=== PATIENT | male | born 1960 | race Caucasian/White ===

== ENCOUNTER 2019-08-21 12:31 | Observation (INO) | payer OTHER ==
[2019-08-21] MEDS ORDERED: Meclizine HCl 25 MG TAB ONE (13:25)
[2019-08-21 13:38] LABS: #Basophils 0.1 thou/uL (0.0-0.2); #Eosinphils 0.2 thou/uL (0.0-0.7); #Lymphocytes 2.2 thou/uL (1.20-3.40); #Monocytes 1.3 thou/uL (0.11-0.59); #Neutrophils 13.5 thou/uL (1.40-6.50); %Basophils 0.7 % (0.0-1.0); %Eosinophils 0.9 % (0.0-10.0); %Lymphocytes 12.6 % (21.0-51.0); %Monocytes 7.6 % (0.0-10.0); %Neutrophils 78.2 % (42.0-75.0); Hemoglobin 15.7 g/dL (14.0-18.0); Mean Corpuscular HGB CONC 34.6 g/dL (32.0-36.0); Mean Corpuscular Hemoglobin 31.7 pg (27.0-31.0); Mean Corpuscular Volume 91.8 fL (78.0-98.0); Mean Platelet Volume 6.4 fL (7.4-10.4); Platelet Count 241 thou/uL (130-400); RBC Distribution Width 11.9 % (11.5-14.5); Red Blood Cell (RBC) Count 4.94 mill/uL (4.70-6.10); White Blood Cell (WBC) Count 17.3 thou/uL (4.8-10.8)
--- NOTE | 2019-08-21 14:06 | CT ---
CT OF THE BRAIN WITHOUT CONTRAST: INDICATION: History of being lightheaded and shortness of breath with headache. COMPARISON: None. FINDINGS: No definite acute infarct, hemorrhage, or hydrocephalus is present. Septum pellucidum and 3rd ventri patsy are midline. Mastoid air cells are clear. Paranasal sinuses are clear. The skull is intact. IMPRESSION: No acute intracranial abnormality. POS: CET
[2019-08-21 14:09] LABS: ALT (SGPT) 12 U/L (8-55); AST (SGOT) 15 U/L (5-34); Albumin 3.8 g/dL (3.5-5.0); Alkaline Phosphatase 95 U/L (40-110); Anion Gap 11 mmol/L (10-20); BUN (Urea Nitrogen) 11 mg/dL (8.4-25.7); Bilirubin, Total 0.3 mg/dL (0.2-1.2); Calc. Creatinine Clearance 0 mL/min (70-130); Calcium 8.9 mg/dL (7.8-10.44); Carbon Dioxide 24 mmol/L (22-29); Chloride 106 mmol/L (98-107); Estimated GFR-MDRD 73; Globulin 2.8 g/dL (2.4-3.5); Glucose 95 mg/dL (70-105); Protein, Total 6.6 g/dL (6.0-8.3); Sodium 137 mmol/L (136-145)
[2019-08-21] MEDS ORDERED: Aspirin Chewable 81 MG TAB ONE (15:01)
[2019-08-21] MEDS ORDERED: Ondansetron PF 4 MG/2 ML Vial IVP PRN (15:05)
[2019-08-21] MEDS ORDERED: Loperamide HCl 2 MG CAP PO PRN (15:05)
[2019-08-21] MEDS ORDERED: Acetaminophen 325 MG TAB PO PRN (15:05)
[2019-08-21] MEDS ORDERED: Bisacodyl 5 MG TAB PO PRN (15:05)
[2019-08-21] MEDS ORDERED: HYDROcodone/Acetaminophen 5/325 mg Tablet PO PRN (15:05)
[2019-08-21] MEDS ORDERED: Ondansetron ODT 4 MG TAB PO PRN (15:05)
[2019-08-21] MEDS ORDERED: HYDROcodone/Acetaminophen 7.5/325 mg Tablet PO PRN (15:05)
[2019-08-21] MEDS ORDERED: Benzonatate 100 MG CAP PO PRN (15:08)
[2019-08-21] MEDS ORDERED: diphenhydrAMINE 25 MG CAP PO PRN (15:08)
[2019-08-21] MEDS ORDERED: Labetalol HCl 100 MG/20 ML VIAL SLOW IVP PRN (15:08)
[2019-08-21] MEDS ORDERED: Melatonin 3 MG TAB PO PRN (15:08)
[2019-08-21] MEDS ORDERED: Docusate 100 MG CAP PO PRN (15:08)
[2019-08-21 15:29] LABS: Bilirubin Negative (Negative); Blood, Urine Negative (Negative); Clarity Clear (Clear); Glucose, Urine (Dipstick) Normal (Negative); Leukocyte Negative Leu/uL (Negative); Nitrite Negative (Negative); Protein, Urine (Dipstick) Negative (Neg-Trace); Urobilinogen Normal mg/dL (Less than 2)
--- NOTE | 2019-08-21 15:41 | RAD ---
PORTABLE CHEST: HISTORY: Lightheaded. Nausea and vomiting. FINDINGS: Lung polanco are clear. No infiltrate or vascular congestion. Heart size within normal range. IMPRESSION: No acute process. POS: OFF
[2019-08-21 16:58] VITALS: BMI 27.0
--- NOTE | 2019-08-21 17:12 | PDOC.HHP ---
Hospitalist HPI - History of Present Illness Dizziness History of Present Illness: 58-year-old gentleman with the past medical history of coronary artery disease status post stent placement, hypertension, and hyperlipidemia who does not take any medications or follow up with his doctor presents with acute onset of dizziness. Patient states that yesterday he was in his normal shape of good health and he was running around grocery stores and department stores for Black Friday shopping. Patient woke up this morning feeling dizzy. Patient did not fall. Patient did not lose consciousness. Patient did not have any altered mentation or slowing of his mentation. Patient did not have any palpitations. Patient I have a chest pain. Patient in a highly shortness of breath. Patient with no six symptoms of fever, chills, nausea, vomiting, or diarrhea. Patient states that his feels dizzy and he feels like his ability to walk has been diminished. Nothing makes symptoms better or worse. Patient feels like he is going to fall, though he has not actually fallen or had any trauma. I find the patient in the emergency department he is breathing well on room air in no apparent distress. Patient with a normal sinus rhythm with a ventricular rate of 50 to 60 bpm. Patient's physical exam is benign and there are no focal neurologic deficits to suggest a typical CVA pattern, with concern for posterior circulation CVA the patient is admitted to stroking it for further evaluation. Hospitalist ROS - Review of Systems All other systems reviewed; all pertinent +/- noted in HPI/Subj Hospitalist History - Past Medical History Source: patient Cardiac: reports: CAD, HTN, Hyperlipidemia. denies: AFIB, CHF, Aortic stenosis Pulmonary: reports: high cholesterol, hypertension. denies: asthma, CVA/TIA/ stroke, congestive heart failure, COPD, HIV/AIDS [employer]PER[employer]ENT: denies: CVA, Dementia, TIA Gastrointestinal: denies: GI bleed Heme/Onc: denies: Cancer Hepatobiliary: reports: Cholelithiasis - Past Surgical History Past Surgical History: reports: Cholecystectomy, Other (leg surgery as a child) - Family History Family History: reports: hypertension - Social History Smoking Status: Current every day smoker (1 pack per day for 4o years) Tobacco Type: cigarettes Alcohol: reports: Rare Drugs: reports: none Living Situation: With Family Domestic Violence: Negative Activity level: independent ambulation - Exam General Appearance: NAD, awake alert Eye: PERRL, anicteric sclera ENT: normocephalic atraumatic, no oropharyngeal lesions, moist mucosa Neck: supple, symmetric, no lymphadenopathy Heart: RRR, no murmur, no gallops, no rubs, normal peripheral pulses Respiratory: CTAB, no wheezes, no rales, no ronchi, normal chest expansion Gastrointestinal: soft, non-tender, non-distended, no palpable masses, no guarding, no rigidity Extremities: no edema Skin: no lesions, no rashes Neurological: cranial nerve grossly intact, normal sensation to touch, no weakness, no focal deficits. negative: facial droop, hemiplegia, speech deficit , vision deficit Musculoskeletal: normal tone, normal strength, no muscle wasting Psychiatric: normal affect, normal behavior, A&O x 3 Hospitalist Results - Labs Result Diagrams: 08/21/19 13:28 08/21/19 13:28 Lab results: WBC 17.3 thou/uL (4.8-10.8) H 08/21/19 13:28 Hgb 15.7 g/dL (14.0-18.0) 08/21/19 13:28 Hct 45.4 % (42.0-52.0) 08/21/19 13:28 MCV 91.8 fL (78.0-98.0) 08/21/19 13:28 Plt Count 241 thou/uL (130-400) 08/21/19 13:28 Neutrophils % 78.2 % (42.0-75.0) H 08/21/19 13:28 Sodium 137 mmol/L (136-145) 08/21/19 13:28 Potassium 4.0 mmol/L (3.5-5.1) 08/21/19 13:28 Chloride 106 mmol/L (98-107) 08/21/19 13:28 Carbon Dioxide 24 mmol/L (22-29) 08/21/19 13:28 BUN 11 mg/dL (8.4-25.7) 08/21/19 13:28 Creatinine 1.04 mg/dL (0.7-1.3) 08/21/19 13:28 Glucose 95 mg/dL (70-105) 08/21/19 13:28 Calcium 8.9 mg/dL (7.8-10.44) 08/21/19 13:28 Total Bilirubin 0.3 mg/dL (0.2-1.2) 08/21/19 13:28 AST 15 U/L (5-34) 08/21/19 13:28 ALT 12 U/L (8-55) 08/21/19 13:28 Alkaline Phosphatase 95 U/L (40-110) 08/21/19 13:28 Troponin I Less than 0.010 ng/mL (< 0.028) 08/21/19 13:28 Serum Total Protein 6.6 g/dL (6.0-8.3) 08/21/19 13:28 Albumin 3.8 g/dL (3.5-5.0) 08/21/19 13:28 Urine Ketones Negative mg/dL (Negative) 08/21/19 15:17 Urine Blood Negative (Negative) 08/21/19 15:17 Urine Nitrite Negative (Negative) 08/21/19 15:17 Ur Leukocyte Esterase Negative Omari/uL (Negative) 08/21/19 15:17 - Radiology Interpretation CT scan - head Status: image reviewed by ut Hospitalist H&P A/P - Problem (1) Posterior circulation stroke Code(s): I63.50 - CEREB INFRC DUE TO UNSP OCCLS OR STENOS OF UNSP CEREB ARTERY Status: Acute (2) HTN (hypertension) Code(s): I10 - ESSENTIAL (PRIMARY) HYPERTENSION Status: Acute (3) HLD (hyperlipidemia) Code(s): E78.5 - HYPERLIPIDEMIA, UNSPECIFIED Status: Acute (4) CAD (coronary artery disease) Code(s): I25.10 - ATHSCL HEART DISEASE OF [place] CORONARY ARTERY W/O ANG PCTRS Status: Acute (5) Tobacco abuse Code(s): Z72.0 - TOBACCO USE Status: Acute - Plan Plan: Admit to medical unit with telemetry - stroke unit MRI brain to rule out acute ischemic event including route carrier circulation CVA, which would explain dizziness ultrasound of the carotid's to rule out hemodynamically significant stenosis echocardiogram to evaluate structural anatomy of the heart and quantify ejection fraction to elicit a cause of patient's dizziness patient is noncompliant with follow up with his primary care physician and does not currently take any of his cholesterol medications are blood pressure medications. Patient with past medical history of coronary disease with stent placement roughly 10 years ago though he is not on any medications for this patient denies symptoms of chest pain or shortness of breath troponin normal chest x-ray without focal pneumonia or other acute cardiothoracic pathology patient with elevation in WBC count of 17,000, possibly stress reactive, will trend UA negative for infection no obvious source of infection at this time patient does not have any pulmonary symptoms or urinary tract infection symptoms patient is not have any nausea or vomiting or diarrhea Will hold ABX at this time and monitor for symptoms to suggest infection DVT PPX - SCDs BP control
[2019-08-21] MEDS: Famotidine 20 MG TAB PO SCH (21:26)
[2019-08-22 04:30] LABS: #Basophils 0.1 thou/uL (0.0-0.2); #Eosinphils 0.5 thou/uL (0.0-0.7); #Lymphocytes 3.1 thou/uL (1.20-3.40); #Neutrophils 5.8 thou/uL (1.40-6.50); %Basophils 0.9 % (0.0-1.0); %Eosinophils 4.5 % (0.0-10.0); %Lymphocytes 29.8 % (21.0-51.0); %Monocytes 9.2 % (0.0-10.0); %Neutrophils 55.6 % (42.0-75.0); Hemoglobin 15.2 g/dL (14.0-18.0); Mean Corpuscular HGB CONC 34.3 g/dL (32.0-36.0); Mean Corpuscular Hemoglobin 31.7 pg (27.0-31.0); Mean Corpuscular Volume 92.4 fL (78.0-98.0); Mean Platelet Volume 6.5 fL (7.4-10.4); Platelet Count 239 thou/uL (130-400); RBC Distribution Width 12.1 % (11.5-14.5); White Blood Cell (WBC) Count 10.4 thou/uL (4.8-10.8)
[2019-08-22 04:48] LABS: Anion Gap 8 mmol/L (10-20); BUN (Urea Nitrogen) 12 mg/dL (8.4-25.7); Calc. Creatinine Clearance 76 mL/min (70-130); Carbon Dioxide 29 mmol/L (22-29); Chloride 103 mmol/L (98-107); Estimated GFR-MDRD 63; Glucose 87 mg/dL (70-105); Potassium 4.3 mmol/L (3.5-5.1); Sodium 136 mmol/L (136-145)
[2019-08-22] MEDS ORDERED: Nicotine 21 MG PATCH TD SCH ×2 (07:30→18:00)
[2019-08-22 08:54] LABS: Cardiac Risk 7.6 (Less than 4.5)
[2019-08-22] MEDS ORDERED: FLU VACC QS2019-20(6MOS UP)/PF 60 MCG/0.5 ML SYRINGE IM ONE (09:00)
--- NOTE | 2019-08-22 09:49 | ULT ---
CAROTID DOPPLER: Ultrasound Doppler study is performed of the extracranial carotid arteries. Carotid Doppler with spe ctral analysis and velocity recordings obtained. INDICATION: Dizziness. FINDINGS: Both extracranial carotids demonstrate a high bifurcation. The distal ICAs were not well evaluated. Ultrasound images show no significant plaque or intimal thickening. Velocity recordings are within normal range bilaterally. Both vertebral arteries show antegrade flow. IMPRESSION: 1. No significant plaque seen with ultrasound. 2. No evidence of stenosis identified by Doppler velocity. POS: OFF
[2019-08-22] MEDS: Famotidine 20 MG TAB PO SCH ×2 (10:20→20:22)
[2019-08-22] MEDS ORDERED: Diazepam 5 MG TAB PO PRN (11:15)
--- NOTE | 2019-08-22 11:52 | PDOC.HOSPP ---
- Subjective Subjective: Seen and examined this a.m. Patient with persistent dizziness, is worse when he stands and worse with ambulation. Patient with persistent bradycardia. CVA evaluation pending. All questions answered in detail. Patient has fallen out of follow up with his nuclear pharmacist and coronary artery disease has not been assessed in over 10 years. - Objective Vital Signs & Weight: Vital Signs (12 hours) Temp Pulse Resp BP Pulse Ox 08/22/19 07:50 98.2 F 59 L 16 110/72 92 L 08/22/19 03:23 98.1 F 54 L 16 114/65 92 L Weight Weight 177 lb 9.6 oz Result Diagrams: 08/22/19 04:18 08/22/19 04:18 Radiology Reviewed by me: Yes EKG Reviewed by me: Yes Hospitalist ROS - Review of Systems All other systems reviewed; all pertinent +/- noted in HPI/Subj - Medication Medications: Active Medications Generic Name Dose Route Start Last Admin Trade Name Freq PRN Reason Stop Dose Admin Hydrocodone Bitart/Acetaminophen 1 tab 08/21/19 15:05 08/22/19 06:35 [place] 5/325 PO 1 tab Q4H PRN Administration Moderate Pain (4-6) Famotidine 20 mg 08/21/19 21:00 08/22/19 10:20 Pepcid PO 20 mg BID NISHA Administration Nicotine 21 mg 08/22/19 07:30 08/22/19 10:18 Nicoderm Patch TD 08/22/19 21:00 Not Given NOW NISHA Sodium Chloride 10 ml 08/22/19 09:00 08/22/19 10:20 Flush - Normal Saline IVF 10 ml Q12HR NISHA Administration - Exam General Appearance: NAD, awake alert Eye: PERRL ENT: normocephalic atraumatic, moist mucosa Neck: supple, symmetric, no JVD Heart: RRR, no murmur, no gallops, no rubs Respiratory: CTAB, no wheezes, no rales, no ronchi Gastrointestinal: soft, non-tender, non-distended, normal bowel sounds, no guarding, no rigidity Extremities: no edema Skin: no lesions, no rashes Neurological: cranial nerve grossly intact, normal sensation to touch, no weakness, no focal deficits Musculoskeletal: normal tone, normal strength, no muscle wasting Psychiatric: normal affect, normal behavior, A&O x 3 Hosp A/P (1) Posterior circulation stroke Code(s): I63.50 - CEREB INFRC DUE TO UNSP OCCLS OR STENOS OF UNSP CEREB ARTERY Status: Acute (2) HTN (hypertension) Code(s): I10 - ESSENTIAL (PRIMARY) HYPERTENSION Status: Acute (3) HLD (hyperlipidemia) Code(s): E78.5 - HYPERLIPIDEMIA, UNSPECIFIED Status: Acute (4) CAD (coronary artery disease) Code(s): I25.10 - ATHSCL HEART DISEASE OF [place] CORONARY ARTERY W/O ANG PCTRS Status: Acute (5) Tobacco abuse Code(s): Z72.0 - TOBACCO USE Status: Acute - Plan Plan: medical unit telemetry stroking cardiology consultation requested, recommendations appreciated patient possibly with symptomatic bradycardia as cause of dizziness MRI brain to rule out acute ischemic event including posterior circulation CVA, which would explain dizziness ultrasound of the carotid - no hemodynamically significant stenosis echocardiogram to evaluate structural anatomy of the heart and quantify ejection fraction to elicit the cause of patient's dizziness patient is noncompliant to follow up with primary care physician and cardiology , does not take medications he was prescribed in the past patient denies symptoms of chest pain or shortness of breath troponin normal chest x-ray without focal pneumonia are other acute cardiothoracic pathology WBC count has normalized without intervention, likely stress reactive urine analysis negative for infection DVT prophylaxis SCDs blood pressure control
--- NOTE | 2019-08-22 13:47 | MRI ---
MRI OF BRAIN WITH AND WITHOUT CONTRAST: INDICATION: Rule out CVA. FINDINGS: Ventricles have normal size and position. No evidence of restricted diffusion. No evidence of acute infarct, mass, or edema. A few scattered white matter hyperintensities appear nonspecific. There is no significant white matter abnormality. Intracranial internal carotid arteries and proximal cerebral arteries and basilar arteries demonstrat e flow voids. No abnormal enhancement. IMPRESSION: Unremarkable MRI of brain. POS: OFF
--- NOTE | 2019-08-22 14:34 | CON ---
DATE OF CONSULTATION: 08/22/2019 REASON FOR CONSULTATION: Dizziness. HISTORY OF PRESENT ILLNESS: Mr. Chun is a pleasant 58-year-old white gentleman, who comes to the hospital for dizziness. He was doing some black [place] shopping and woke up feeling dizzy. No falls. No nausea or vomiting or palpitations. He decided to come in as he could not do much from the from the dizziness. He was admitted for CVA evaluation and Cardiology is being consulted to see if his dizziness is cardiac related. He has been on the pvc monitor and his heart rate in the 60s while feeling dizzy. PAST MEDICAL HISTORY: 1. Coronary artery disease with stents in 2003 in [place]. He has a stent card and he had 3-0 stent to the proximal RCA. This was a Taxus stent. This was in August of 2004. 2. Hypertension. 3. Hyperlipidemia. SURGICAL HISTORY: 1. Cholecystectomy. 2. Leg surgery as a child. FAMILY HISTORY: Noncontributory. SOCIAL HISTORY: Smokes a pack a day for the last 40 years. No alcohol or drugs. OUTPATIENT MEDICATIONS: Simvastatin unknown dose, but he has been taking this for a long time. ALLERGIES: NO KNOWN DRUG ALLERGIES. REVIEW OF SYSTEMS: A 12-point review of systems was done and was all negative unless stated in the history of present illness. PHYSICAL EXAMINATION: VITAL SIGNS: Temperature 97.8, pulse 55, respiratory rate 16, satting 94% on room air, blood pressure 109/71. GENERAL: Awake, alert, oriented x3. No distress. HEENT: Normocephalic, atraumatic. NECK: Supple. LUNGS: Clear. CARDIOVASCULAR: S1 and S2. No S3 or S4. No murmurs. ABDOMEN: Soft. Positive bowel sounds. EXTREMITIES: No edema. SKIN: Warm and dry. NEUROLOGICAL: [place]-Hallpike maneuver was positive with very mild nystagmus on the right side. The more we did it, the less he felt the symptoms and the dizziness was gone. We did on the eft side. LABORATORY DATA: Laboratory work was reviewed. White count of 17, down to 10, hemoglobin of 15, hematocrit 44, platelet count 239. Chemistries were unremarkable. Troponin is undetectable. Triglycerides of 346, cholesterol total of 227, LDL of 128, HDL of 30. UA was normal. . PLAN: 1. Dizziness. Most likely vertigo. Await MRI results and complete workup with an echo. Unlikely to be a tachy or bradyarrhythmia as his heart rate is normal in the 60s, normal sinus while he is still feeling dizzy on the bed. 2. Coronary artery disease by history. He has a stent to the right. His LDL goal is less than 70. He needs to be on high dose statins at this time and an aspirin daily. 3. Hypertension: Blood pressure is borderline low. Would not give him any antihypertensive at this time. 4. Tobacco use. Counseled on tobacco cessation. PLAN: 1. Echocardiogram pending. 2. MRI review pending. Preliminary report is apparently negative, but we will wait for official review. 3. Most likely this is benign positional vertigo. I recommended he look for the Apley's maneuvers online. He learned how to do this to see if this is going to help him. He may need meclizine. We will leave this up to primary team. 4. If his MRI shows what appears to be embolic strokes, he will need a LINQ. Otherwise, if the MRI is negative, we will just wait for the echo and if this is unremarkable, he may discharge home. 5. Plan to follow up in the office in 2-3 months for followup of his coronary artery disease which is stable at this time. Thank you for letting us participate in the care of your patient. We will follow. Job ID: [id number]
[2019-08-22] MEDS ORDERED: Meclizine HCl 25 MG TAB PO PRN (19:09)
[2019-08-22] MEDS ORDERED: Zolpidem Tartrate 5 MG TAB PO SCH (21:00)
[2019-08-23 07:50] VITALS: TEMP 99.1
[2019-08-23] MEDS: Famotidine 20 MG TAB PO SCH (08:36)
[2019-08-23 11:12] VITALS: BP 110/76
--- NOTE | 2019-08-24 08:41 | DIS ---
DATE OF ADMISSION: 08/21/2019 DATE OF DISCHARGE: 08/23/2019 DISCHARGE DIAGNOSES: 1. Acute paroxysmal positional vertigo. 2. Hypertension. 3. Hyperlipidemia. 4. Coronary artery disease. 5. Tobacco abuse. HISTORY OF PRESENT ILLNESS: This patient is a 59-year-old male, who presented to the emergency department with dizziness that was positional, worse with standing and with ambulation. The patient had some bradycardia in the 60s. The patient reported that [place] and had not reestablished with a primary care provider or safety belt installer. He had an initial CT scan of the brain and chest x-ray in the emergency department, which were unremarkable. HOSPITAL COURSE: The patient was admitted to the hospital initially for concern regarding bradycardia and the possibility of a posterior circulation CVA. He was placed on telemetry, which revealed primarily heart rate remaining in the 50s. He had labs including the troponins, which were negative. He initially had a slight elevation of his white blood cell count at 17.3. He had an MRI of the brain, which was unremarkable. Carotid Dopplers which were unremarkable. He was seen in consultation by Cardiology, who felt he had a benign paroxysmal positional vertigo. He recommended outpatient followup with him. Echocardiogram ultimately revealed an ejection fraction of 55% to 60% with grade 2 diastolic dysfunction, but otherwise normal. The patient felt completely well, said his symptoms had resolved. He was up ambulating in the hallway without difficulty and his white blood cell count had normalized to 10.4. He had stable vital signs throughout other than the very mild bradycardia. PHYSICAL EXAMINATION: VITAL SIGNS: On the day of discharge, temperature is 99.1, pulse is 69, respirations 16, O2 saturation 93% on room air, and blood pressure is 110/76. GENERAL: He was awake and alert. HEART: Regular rate and rhythm. LUNGS: Clear bilaterally. ABDOMEN: Benign. EXTREMITIES: No cyanosis, clubbing, or edema. DISPOSITION: The patient is discharged to home. He is to have a heart healthy diet. ACTIVITY: As tolerated. DISCHARGE MEDICATIONS: He will be on: 1. Aspirin 81 mg daily. 2. Simvastatin 10 mg daily. FOLLOWUP: He is to follow up with his primary care provider, which he will establish with promptly. He was educated on Rajeev maneuvers and otolith repositioning exercises should his symptoms recur. We discussed the possibility of using [id number] meclizine for symptomatic control as well. All of his questions were answered. The patient is welcomed to return to the hospital at anytime should he have the need to do so. Job ID: [id number]
== END 2019-08-23 11:38 | disposition home or self-care (01) ==
LOC: ERS 12:31 → 2SE 16:52
PROVIDERS: ADMIT Internal Medicine; ATTEND Student in an Organized Health Care Education/Training Program
DX: H81.10 Benign paroxysmal vertigo, unspecified ear (principal); I11.0 Hypertensive heart disease with heart failure; I50.9 Heart failure, unspecified; E78.5 Hyperlipidemia, unspecified; I25.10 Atherosclerotic heart disease of native coronary artery without angina pectoris; I48.91 Unspecified atrial fibrillation; F17.210 Nicotine dependence, cigarettes, uncomplicated; I35.0 Nonrheumatic aortic (valve) stenosis; Z95.5 Presence of coronary angioplasty implant and graft
CPT/HCPCS: 36415; 70450; 70553; 71045; 80048; 80053; 80061; 81003; 84484; 85025; 90471; 90686; 90732; 93005; 93306; 93880; G0008; G0009; G0378; J8597

== ENCOUNTER 2024-05-28 17:47 | Inpatient (IN) | payer OTHER ==
[~2024-05-28 17:47] MED LIST: Iopamidol-370 76% 500 ML MDV (1 ML CHARGE) ONE
[2024-05-28 18:29] LABS: #Basophils 0.14 10x3/uL (0.0-0.2); %Basophils 0.9 % (0.0-1.0); %Eosinophils 1.4 % (0.0-10.0); %Lymphocytes 16.4 % (21.0-51.0); %Monocytes 7.9 % (0.0-10.0); %Neutrophils 72.7 % (42.0-75.0); Hematocrit 51.2 % (42.0-52.0); Hemoglobin 17.8 g/dL (14.0-18.0); Mean Corpuscular HGB CONC 34.8 g/dL (32.0-36.0); Mean Corpuscular Hemoglobin 32.2 pg (27.0-31.0); Mean Corpuscular Volume 92.6 fL (78.0-98.0); Mean Platelet Volume 8.7 fL (7.4-10.4); Platelet Count 241 10x3/uL (130-400); RBC Distribution Width 13.2 % (11.5-14.5); Red Blood Cell (RBC) Count 5.53 mill/uL (4.70-6.10)
[2024-05-28 18:42] LABS: PTT 28.1 sec (22.9-36.1); Prothrombin Time 12.8 sec (12.0-14.7)
[2024-05-28 18:51] LABS: Troponin I Less than 0.010 ng/mL (< 0.028)
[2024-05-28 19:01] LABS: ALT (SGPT) 19 U/L (8-55); AST (SGOT) 16 U/L (5-34); Albumin 3.7 g/dL (3.4-4.8); Alkaline Phosphatase 96 U/L (40-110); Anion Gap 15 mmol/L (10-20); BUN (Urea Nitrogen) 14 mg/dL (8.4-25.7); Bilirubin, Total 0.4 mg/dL (0.2-1.2); Calc. Creatinine Clearance 0 mL/min (70-130); Calcium 9.5 mg/dL (7.8-10.44); Carbon Dioxide 22 mmol/L (23-31); Chloride 105 mmol/L (98-107); Estimated GFR 64; Globulin 3.8 g/dL (2.4-3.5); Glucose 93 mg/dL (80-115); Potassium 4.3 mmol/L (3.5-5.1); Protein, Total 7.5 g/dL (5.8-8.1); Sodium 138 mmol/L (136-145)
[2024-05-28] MEDS ORDERED: Aspirin 325 MG TAB ONE (22:07)
[2024-05-28] MEDS ORDERED: Aspirin Chewable 81 MG TAB ONE (22:09)
[2024-05-29 00:32] VITALS: BMI 27.7
[2024-05-29] MEDS ORDERED: hydrALAZINE 20 MG/ML VIAL SLOW IVP PRN (00:56)
[2024-05-29] MEDS ORDERED: Acetaminophen 325 MG TAB PO PRN (00:56)
[2024-05-29] MEDS ORDERED: Ondansetron ODT 4 MG TAB PO PRN (00:56)
[2024-05-29] MEDS ORDERED: Ondansetron PF 4 MG/2 ML Vial IVP PRN (00:56)
[2024-05-29] MEDS: Lactated Ringer's 1,000 ML IV SCH (02:50)
[2024-05-29 05:08] LABS: Cardiac Risk 6.5 (Less than 4.5); Cholesterol 194 mg/dl (< 200 Desired); HDL Cholesterol 30 mg/dL (>60 Neg Risk); LDL Cholesterol, Calculated 115 mg/dL; Magnesium 2.1 mg/dL (1.6-2.6); Triglycerides 244 mg/dL (Less than 150)
[2024-05-29] MEDS: Aspirin 81 mg Enteric Coated Tablet PO SCH (09:18)
[2024-05-29] MEDS: Lorazepam 0.5 MG TAB PO PRN (09:18)
[2024-05-29 13:42] LABS: #Basophils 0.08 10x3/uL (0.0-0.2); %Basophils 0.7 % (0.0-1.0); %Eosinophils 2.9 % (0.0-10.0); %Lymphocytes 24.2 % (21.0-51.0); %Monocytes 6.7 % (0.0-10.0); %Neutrophils 64.9 % (42.0-75.0); Hematocrit 46.4 % (42.0-52.0); Hemoglobin 15.7 g/dL (14.0-18.0); Mean Corpuscular HGB CONC 33.8 g/dL (32.0-36.0); Mean Corpuscular Volume 94.5 fL (78.0-98.0); Platelet Count 208 10x3/uL (130-400); RBC Distribution Width 13.2 % (11.5-14.5); Red Blood Cell (RBC) Count 4.91 mill/uL (4.70-6.10)
[2024-05-29] MEDS ORDERED: Calcium Carbonate 500 MG ChewTAB PO PRN (16:45)
[2024-05-29 17:51] LABS: Hemoglobin A1c 5.5 % (4.0-6.0)
[2024-05-29] MEDS: Atorvastatin Calcium 40 MG TAB PO SCH (21:00)
[2024-05-30 03:46] LABS: #Basophils 0.11 10x3/uL (0.0-0.2); %Eosinophils 3.3 % (0.0-10.0); %Lymphocytes 32.4 % (21.0-51.0); %Neutrophils 53.7 % (42.0-75.0); Hematocrit 48.2 % (42.0-52.0); Hemoglobin 16.3 g/dL (14.0-18.0); Mean Corpuscular HGB CONC 33.8 g/dL (32.0-36.0); Mean Corpuscular Hemoglobin 31.2 pg (27.0-31.0); Mean Corpuscular Volume 92.2 fL (78.0-98.0); Mean Platelet Volume 8.8 fL (7.4-10.4); Platelet Count 219 10x3/uL (130-400); RBC Distribution Width 13.2 % (11.5-14.5); Red Blood Cell (RBC) Count 5.23 mill/uL (4.70-6.10)
[2024-05-30 04:03] LABS: Anion Gap 16 mmol/L (10-20); BUN (Urea Nitrogen) 17 mg/dL (8.4-25.7); Calc. Creatinine Clearance 78 mL/min (70-130); Calcium 9.1 mg/dL (7.8-10.44); Carbon Dioxide 22 mmol/L (23-31); Chloride 105 mmol/L (98-107); Estimated GFR 71; Glucose 90 mg/dL (80-115); Potassium 3.9 mmol/L (3.5-5.1); Sodium 139 mmol/L (136-145)
[2024-05-30 15:31] VITALS: BP 118/80; TEMP 97.9
== END 2024-05-30 21:18 | disposition home or self-care (01) | DRG 66 ==
LOC: ERS 17:47 → 2SE 23:41 → OBSVTOIN 05-29 16:44 → 2SE 05-30 18:27
PROVIDERS: ADMIT Internal Medicine; ATTEND Student in an Organized Health Care Education/Training Program
DX: I63.9 Cerebral infarction, unspecified (principal); I25.10 Atherosclerotic heart disease of native coronary artery without angina pectoris; E78.5 Hyperlipidemia, unspecified; F17.210 Nicotine dependence, cigarettes, uncomplicated; D72.829 Elevated white blood cell count, unspecified; H53.2 Diplopia; Z95.5 Presence of coronary angioplasty implant and graft; Z90.49 Acquired absence of other specified parts of digestive tract; R42 Dizziness and giddiness
CPT/HCPCS: 36415; 70450; 70496; 70498; 70551; 71045; 80048; 80053; 80061; 83036; 83735; 84439; 84443; 84484; 85025; 85610; 85730; 93005; 93306; G0378; J7120; Q9967

== ENCOUNTER 2025-06-27 12:02 | Emergency (ER) | payer MEDICARE, OTHER ==
[2025-06-27 14:11] LABS: #Basophils 0.11 10x3/uL (0.0-0.2); #Eosinophils 0.14 10x3/uL (0.0-0.7); #Monocytes 1.17 10x3/uL (0.11-0.59); #Neutrophils 11.97 10x3/uL (1.40-6.50); %Basophils 0.7 % (0.0-1.0); %Eosinophils 0.9 % (0.0-10.0); %Lymphocytes 16.5 % (21.0-51.0); %Monocytes 7.2 % (0.0-10.0); %Neutrophils 74.0 % (42.0-75.0); Hematocrit 54.4 % (42.0-52.0); Hemoglobin 18.4 g/dL (14.0-18.0); Mean Corpuscular Hemoglobin 31.0 pg (27.0-31.0); Mean Corpuscular Volume 91.6 fL (78.0-98.0); Platelet Count 270 10x3/uL (130-400); Red Blood Cell (RBC) Count 5.94 mill/uL (4.70-6.10); White Blood Cell (WBC) Count 16.16 10x3/uL (4.8-10.8)
[2025-06-27 14:28] LABS: ALT (SGPT) 14 U/L (Less than 45); AST (SGOT) 21 U/L (11-34); Albumin 4.2 g/dL (3.1-4.5); Alkaline Phosphatase 109 U/L (40-110); Anion Gap 18 mmol/L (10-20); BUN (Urea Nitrogen) 10 mg/dL (8.4-25.7); Bilirubin, Total 0.4 mg/dL (0.3-1.2); Calc. Creatinine Clearance 0 mL/min (70-130); Calcium 10.2 mg/dL (7.8-10.44); Carbon Dioxide 24 mmol/L (23-31); Chloride 103 mmol/L (98-107); Globulin 3.6 g/dL (2.4-3.5); Glucose 96 mg/dL (80-115); Lipase 47 U/L (8-78); Potassium 4.6 mmol/L (3.5-5.1); Sodium 140 mmol/L (136-145)
[2025-06-27 14:51] LABS: Bacteria/HPF None Seen HPF (None Seen); CAUTI Indications for Culture Pelvic or flank pain; Glucose, Urine (Dipstick) Normal (Negative); Leukocyte 25 Leu/uL (Negative); Protein, Urine (Dipstick) 20 mg/dL (Neg-Trace); RBC/HPF 0-3 HPF (0-3); Specific Gravity, Urine 1.030 (1.002-1.036)
[2025-06-27 14:52] LABS: Urine Culture Reflex No No
[2025-06-27] MEDS ORDERED: Dicyclomine 20 MG TAB ONE (15:36)
[2025-06-27] MEDS ORDERED: Ketorolac Tromethamine 30 MG (1 mL) VIAL ONE (15:37)
== END 2025-06-27 16:40 | disposition home or self-care (01) ==
LOC: ERS 12:02
DX: S70.12XA Contusion of left thigh, initial encounter (principal); R10.30 Lower abdominal pain, unspecified; D72.829 Elevated white blood cell count, unspecified; N17.9 Acute kidney failure, unspecified; N28.1 Cyst of kidney, acquired; K76.9 Liver disease, unspecified; F17.210 Nicotine dependence, cigarettes, uncomplicated; Z55.6 Problems related to health literacy; Z95.5 Presence of coronary angioplasty implant and graft; X58.XXXA Exposure to other specified factors, initial encounter
CPT/HCPCS: 74177; 80053; 81001; 83605; 83690; 84484; 85025; 87040; 93005; 93971; J1885; 96361; 96374; Q9967